=== PATIENT | female | born 2000 | race Caucasian/White ===

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

== ENCOUNTER 2020-08-09 13:55 | Emergency (ER) | payer MEDICAID ==
[~2020-08-09] VITALS: Ht 154.9 cm; Wt 74.8 kg
[2020-08-09 13:57] VITALS: BP 138/70
== END 2020-08-09 18:45 | disposition home or self-care (01) ==
LOC: ER 13:55
DX: O26.891 Other specified pregnancy related conditions, first trimester (principal); J06.9 Acute upper respiratory infection, unspecified; Z3A.01 Less than 8 weeks gestation of pregnancy; Z20.828 Contact with and (suspected) exposure to other viral communicable diseases
CPT/HCPCS: 36415; 87426; 99283; C9803; U0003

== ENCOUNTER 2024-09-05 17:08 | Inpatient (IN) | payer MEDICAID ==
[~2024-09-05] VITALS: Ht 154.9 cm; Wt 81.6 kg
[2024-09-05] MEDS ORDERED: ceFAZolin 2 GM/D5W50ml 50 ML IV ONE (17:45)
[2024-09-05] MEDS ORDERED: oxyTOCIN 10 UNIT/ML 10ML VIAL ONE (17:56)
[2024-09-05] MEDS ORDERED: MORPHINE SULF PF 5 MG/10 ML VIAL ONE (17:56)
[2024-09-05 18:04] LABS: Basophils # (auto) 0 10 ^3/uL (0-0.2); Basophils % (auto) 0.3 % (0.0-2.0); Eosinophils # (auto) 0 10 ^3/uL (0-0.8); Eosinophils % (auto) 0.1 % (0.0-7.0); Hematocrit 39.1 % (36.0-46.0); Hemoglobin 12.9 g/dL (12.2-16.2); Lymphocytes # (auto) 0.9 10 ^3/uL (0.4-5.4); Lymphocytes % (auto) 13.9 % (10.0-50.0); Mean Corpuscular Hgb Conc. 33.1 g/dL (32.0-36.0); Mean Corpuscular Volume 84.6 fL (80.0-100.0); Monocytes # (auto) 0.5 10 ^3/uL (0-1.3); Neutrophils # (auto) 5.3 10 ^3/uL (1.6-8.6); Neutrophils % (auto) 78.7 % (37.0-80.0); Nucleated Red Blood Cells % 0.1 %; Platelet Count (auto) 168 10^3/uL (140-450); Red Blood Cells 4.62 10^6/uL (4.0-5.20); Red Cell Distribution Width 16.1 % (11.8-14.3); White Blood Cell 6.7 10^3/uL (4.4-10.8)
--- NOTE | 2024-09-05 18:06 | DVHHP2 ---
OB CC & HPI Date Date of Admission: Sep 05, 2024 Patient Identification: : 5 Para: 3 EDC: Sep 19, 2024 EGA: 38WKS Chief Complaints: Reason for admission: active labor Admission Nurse Assessment Rev: No History of Present Complaints PT PRESNTS INactive labor,no rom or vag bleeding ,baby is breech Past Medical History Cardiac: No pertinent Hx Pulmonary: No pertinent Hx Central Nervous System: No pertinent Hx GI: No pertinent Hx Hemotology/Oncology: No pertinent Hx Hepatobiliary: No pertinent Hx Psychiatric: No pertinent Hx Musculoskeletal: No pertinent Hx Rheumotologic: No pertinent Hx Infectious Disease: No peritnent Hx ENT: No pertinent Hx Renal/: No pertinent Hx Endocrine: No pertinent Hx Dermatology: No pertinent Hx Past Surgical History: No pertinent Hx OB History OB History Care: Good Care Ultrasounds: Normal mid trimester US Obstetrical Complications: None Medical Complications: None Allergies: Coded Allergies: Avocado (Verified Allergy, Unknown, 10/04/16) Uncoded Allergies: PENECILLIN (Allergy, Unknown, 08/24/16) Current Medications Current Medications Medications (Trade) Dose Ordered Sig/Ruddy Route PRN Reason Start Time Stop Time Status Last Admin Lactated Ringer's 1,000 ml @ 125 mls/hr Q8H IV 09/05/24 17:45 Family & Social History Family/Social History Blood Type: O+ Rubella: immune RPR/VDRL: Negative GBS Status: Negative HBsAG: Negative Review of Systems Constitutional: No symptom reported Ears, Nose, & Throat: No symptom reported Eyes: No symptom reported Pulmonary/Respiratory: No symptom reported Cardiovascular: No symptom reported Gastrointestinal: No symptom reported Genitourinary: No symptom reported Musculoskeletal: No symptom reported Skin: No symptom reported Psychiatric: No symptom reported Endocrine: No symptom reported Hemotologic/Lymphatic: No symptom reported OB Admission Exam Physical Exam HEENT: TMs Normal, Fontanelles Normal, Nasal Mucosa Normal, Eyes non-injected, Oropharynx Normal, PERRLA, Moist Membranes, EOMI Heart: Rhythm Normal Lungs: Clear Abdomen: Non tender Extremities: Normal Reflexes: Normal Cervical Dilatation: 3cm Effacement: 50% Station: -3 Membranes: Intact Heart Rate: 130's Accelerations: Accelerations Present Decelerations: No Decelerations Short Term Variability: 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
[2024-09-05] MEDS ORDERED: DOCU-94 PO (18:07)
[2024-09-05] MEDS ORDERED: IBUP-1456 PO (18:07)
[2024-09-05] MEDS ORDERED: HYDR-4072 PO (18:07)
[2024-09-05] MEDS: CLINDAMYCIN 900MG IV 50 ML IV ONE (18:11)
[2024-09-05] MEDS: LACTATED RINGER'S 1,000 ML IV SCH (18:12)
--- NOTE | 2024-09-05 18:12 | DVH ---
Limited OBSTETRIC ULTRASOUND PRIOR TO 14 WEEKS CLINICAL INDICATION: Labor check TECHNIQUE: Multiple grayscale ultrasound images were obtained of the pelvis via transabdominal and tr ansvaginal approach for obstetric evaluation. Limited color Doppler and spectral Doppler acquisitions were also obtained. COMPARISON: None FINDINGS/IMPRESSION: 1. Placenta location, fundal. No placenta previa or abruption. 2. heart rate: 147 beats per minute 3. Current PERRY: 17.7 cm 4. position: Breech
[2024-09-05 18:22] LABS: Alanine Aminotransferase 15 U/L (7-40); Albumin 4.3 g/dL (3.2-4.8); Anion Gap 12 (5-15); Aspartate Aminotransferase 15 U/L (13-40); Calcium 9.2 mg/dL (8.7-10.4); Sodium 136 mmol/L (136-145)
[2024-09-05 18:23] LABS: Total Protein 6.8 g/dL (5.7-8.2)
[2024-09-05 18:27] LABS: INR 0.96 (0.9-1.15); Partial Thromboplastin Time 29.3 SEC (24.5-34.5); Prothrombin Time 10.2 sec (9.3-11.8)
[2024-09-05] MEDS ORDERED: PHENYLEPHRINE HCL 10 MG/ML VL ONE (18:28)
[2024-09-05] MEDS: LACT. RINGERS/OXYTOCIN 20UNITS 1,000 ML IV ONE (18:30)
[2024-09-05] MEDS ORDERED: ONDANSETRON HCL 4 MG/2 ML VIAL ONE (18:30)
[2024-09-05] MEDS: GUM (CHEWING) 1 GUM CHEW CHEW ONE (18:30)
[2024-09-05] MEDS ORDERED: ONDANSETRON HCL 4 MG/2 ML VIAL IV PRN ×2 (18:30→19:45)
[2024-09-05 18:32] LABS: Urine Bacteria FEW /hpf (None Seen); Urine Blood 1+ /uL (Negative); Urine Budding Yeast OCCASIONAL /hpf (None Seen); Urine Clarity Clear (Clear); Urine Color Light-Yellow (Yellow); Urine Mucus FEW (None Seen); Urine Protein, UAD Negative (Negative); Urine Specific Gravity 1.013 (1.001-1.035); Urine Squamous Epithelial Cell FEW /hpf (<5); Urine Urobilinogen Normal (Negative); Urine WBC 3 /HPF (0-5)
[2024-09-05 18:33] LABS: Amphetamine Screen, Urine Neg (NEGATIVE); Barbiturate Scree,Urine Neg (NEGATIVE); Benzodiazephine Screen, Urine Neg (NEGATIVE); Cannabinoid Screen, Urine Neg (NEGATIVE); Cocaine Screen, Urine Neg (NEGATIVE); Opiate Scree,Urine Neg (NEGATIVE); Phencyclidine Screen, Urine Neg (NEGATIVE)
[2024-09-05 18:33] LABS: Alkaline Phosphatase 166 U/L (46-116); BUN/Creatinine Ratio 9.3 (10.0-20.0); Bilirubin, Total 1.5 mg/dL (0.2-1.0); Blood Urea Nitrogen < 5 mg/dL (9-23); Carbon Dioxide 16 mmol/L (20-31); Chloride 108 mmol/L (98-107); Glucose 69 mg/dL (74-106); Potassium 3.2 mmol/L (3.5-5.1)
[2024-09-05] MEDS ORDERED: ePHEDrine SULFATE 50 MG/ML AMP ONE (18:38)
--- NOTE | 2024-09-05 18:57 | DVHOP2 ---
Operative Report DATE OF OPERATION: 09/05/24 PREOPERATIVE DIAGNOSES: iup at 38wks in labor,breech presentation ,desires pcs POSTOPERATIVE DIAGNOSES: same SURGEON: Archana Fitzgerald D.O./kelli ANESTHESIOLOGIST: mahamed TYPE OF ANESTHESIA : spinal CONSENT: The patient was informed of the risks and benefits of the procedure. The patient was informed of the risks and benefits of the procedure. These include but are not limited to , complications of anesthesia, postoperative infection, incomplete relief of symptoms, recurrence of symptoms, damage to blood vessels, nerves and tendons, deep venous thrombosis, pulmonary embolism and possible need for repeat surgery in the future. FINDINGS: Baby [b] with Apgars of [8] and [9]. Grossly normal appearing tubes and ovaries.breech PROCEDURES: Primary low transverse section. PROCEDURE IN DETAIL: The patient was taken to the operating room. She already had an epidural in place. She was then placed in supine position with a leftward tilt. A Pfannenstiel skin incision was made 2 cm above the symphysis pubis. This incision was carried to the underlying layer of fascia. The fascia was nicked in the midline. The incision was extended laterally. The superior aspect of the fascial incision was grasped and elevated. The same procedure was done to the inferior aspect of the fascial incision. The rectus muscles were then in the midline. Peritoneum was identified and entered. Peritoneal incision was extended superiorly and inferiorly with good visualization of the bladder. Bladder blade was inserted. Vesicouterine peritoneum was identified and entered. Lower uterine segment was incised in a transverse fashion. The was delivered from breech presentation. Infant was baby [b] with Apgars [8] and 9. Placenta was then removed manually. Uterus was exteriorized and cleared of all clots and debris. The incision was repaired using 0 Vicryl in a double-layered fashion. No bleeding was noted. Uterus was then returned to the abdomen. The gutters were cleared off all clots and debris. Peritoneum was closed using 0 Vicryl, fascia was closed using 0 Maxon, and skin was closed using feliciano. The patient tolerated the procedure well. She was taken to the recovery room in stable condition. ESTIMATED BLOOD LOSS: Estimated blood loss was noted to be 500 mL. ARCHANA FITZGERALD DO Sep 05, 2024 18:57
--- NOTE | 2024-09-05 18:59 | POSTOP ---
Post-Operative Note Post-Operative Note Preop Diagnosis iup at 38wks in breech presentation and active labor Postop Diagnosis: same Operation performed pltcs Specimen bbay boy,breech Anesthesia: Regional Anesthesiologist: nugyen Blood Loss(fluid mgmt) 500ml Surgeon Aidee Fitzgerald Manager Talent Management kelli Implant na Complications & Mgmt none Date 09/05/24 Time 18:57 AIDEE FITZGERALD DO Sep 05, 2024 18:59
[2024-09-05 19:23] VITALS: O2SAT 100
[2024-09-05] MEDS ORDERED: ACETAMINOPHEN IV 1000 MG/100ML (10MG/ML) IV PRN (19:45)
[2024-09-05] MEDS ORDERED: DexAMETHasone SOD PHOS 10MG/1ML VIAL INJ IV PRN (19:45)
[2024-09-05] MEDS ORDERED: MEPERIDINE HCL (25 MG/ML) 1ML VIAL IV PRN (19:45)
[2024-09-05] MEDS ORDERED: NALOXONE HCL 0.4 MG/ML VIAL IV PRN (19:45)
[2024-09-05] MEDS ORDERED: HYDROmorphone HCL 2 MG/ML VL/or syr IV PRN ×2 (19:45)
[2024-09-05] MEDS: NALBUPHINE HCL 10 MG/1ml INJECTION SUBCUT ONE (19:45)
[2024-09-05] MEDS ORDERED: KETOROLAC TROMETH 30 MG/ML 1ML VIAL IV PRN (19:45)
[2024-09-05 20:04] VITALS: BP_SYST 112; BP_SYST 131; BP_DIAS 54; BP_DIAS 68; PULSE 119; PULSE 127; RESP 17; RESP 18; TEMP 97.5; TEMP 97.9; O2SAT 97; O2SAT 98
[2024-09-05 20:34] VITALS: BP 131/54; PULSE 118; PULSE 122; RESP 16; O2SAT 100
[2024-09-05] MEDS: diphenhdrAMINE HCL 50 MG/1 ML VL IV PRN (20:58)
[2024-09-05 21:30] VITALS: BP 126/76; PULSE 119; PULSE 122; RESP 16; TEMP 98; O2SAT 97
[2024-09-05] MEDS: LACTATED RINGER'S 1,000 ML IV ONE (22:23)
[2024-09-05 22:30] VITALS: BP 112/59; PULSE 120; PULSE 134; RESP 16; O2SAT 94; O2SAT 97
[2024-09-05 23:30] VITALS: BP 110/60; PULSE 127; PULSE 128; RESP 16; TEMP 98; O2SAT 95; O2SAT 97
[2024-09-05 23:30] LABS: Basophils # (auto) 0 10 ^3/uL (0-0.2); Basophils % (auto) 0.2 % (0.0-2.0); Eosinophils # (auto) 0 10 ^3/uL (0-0.8); Hematocrit 33.9 % (36.0-46.0); Hemoglobin 11.6 g/dL (12.2-16.2); Lymphocytes # (auto) 0.9 10 ^3/uL (0.4-5.4); Lymphocytes % (auto) 14.4 % (10.0-50.0); Mean Corpuscular Hemoglobin 28.8 pg (28.0-32.0); Mean Corpuscular Hgb Conc. 34.2 g/dL (32.0-36.0); Mean Corpuscular Volume 84.1 fL (80.0-100.0); Monocytes # (auto) 0.5 10 ^3/uL (0-1.3); Monocytes % (auto) 7.1 % (0.0-12.0); Neutrophils # (auto) 5.1 10 ^3/uL (1.6-8.6); Neutrophils % (auto) 78.3 % (37.0-80.0); Platelet Count (auto) 163 10^3/uL (140-450); Red Blood Cells 4.03 10^6/uL (4.0-5.20); White Blood Cell 6.5 10^3/uL (4.4-10.8)
[2024-09-06] VITALS (18 sets, daily range): BP systolic 104–121; BP diastolic 41–76; PULSE 91–128; RESP 15–18; TEMP 97.9–98.4; O2SAT 94–100
[2024-09-06 06:18] LABS: Basophils # (auto) 0 10 ^3/uL (0-0.2); Basophils % (auto) 0.1 % (0.0-2.0); Eosinophils # (auto) 0 10 ^3/uL (0-0.8); Eosinophils % (auto) 0.1 % (0.0-7.0); Hemoglobin 10.8 g/dL (12.2-16.2); Lymphocytes # (auto) 1.3 10 ^3/uL (0.4-5.4); Lymphocytes % (auto) 22.9 % (10.0-50.0); Mean Corpuscular Hemoglobin 28.5 pg (28.0-32.0); Mean Corpuscular Hgb Conc. 33.9 g/dL (32.0-36.0); Mean Corpuscular Volume 84.1 fL (80.0-100.0); Monocytes # (auto) 0.6 10 ^3/uL (0-1.3); Monocytes % (auto) 10.3 % (0.0-12.0); Neutrophils # (auto) 3.7 10 ^3/uL (1.6-8.6); Neutrophils % (auto) 66.6 % (37.0-80.0); Nucleated Red Blood Cells % 0.1 %; Platelet Count (auto) 141 10^3/uL (140-450); Red Blood Cells 3.81 10^6/uL (4.0-5.20); Red Cell Distribution Width 15.9 % (11.8-14.3); White Blood Cell 5.6 10^3/uL (4.4-10.8)
--- NOTE | 2024-09-06 07:20 | DVHPN2 ---
Chief Complaints Patient reports: No new complaints Nursing reports: No new complaints Objective Vitals Vital Signs Date Time Temp Pulse Resp B/P (MAP) Pulse Ox O2 Delivery O2 Flow Rate FiO2 09/06/24 06:00 100 16 121/66 (84) 94 09/06/24 05:00 98.0 98.0 09/05/24 19:45 Room Air 09/05/24 19:23 0 Medications Current Medications Medications (Trade) Dose Ordered Sig/Ruddy Route PRN Reason Start Time Stop Time Status Last Admin Acetaminophen (Ofirmev) 1,000 mg Q8HPRN PRN IV MODERATE PAIN (4-6 PAIN SCALE) 09/06/24 00:15 09/07/24 00:14 Diphenhydramine HCl (Benadryl Injection) 25 mg Q4HP PRN IV FOR ITCHING 09/05/24 19:45 09/05/24 20:58 Ketorolac Tromethamine (Toradol Injection) 30 mg Q6HP PRN IV MODERATE PAIN (4-6 PAIN SCALE) 09/05/24 19:45 09/10/24 19:44 Lactated Ringer's 1,000 ml @ 125 mls/hr Q8H IV 09/05/24 17:45 09/06/24 05:35 Ondansetron HCl (Zofran) 4 mg Q4HP PRN IV NAUSEA / VOMITING 09/05/24 18:30 Ondansetron HCl (Zofran) 4 mg Q4HP PRN IV NAUSEA / VOMITING 09/05/24 19:45 General: Normal Lungs: Normal Cardiovascular: Normal Abdominal: Soft Extremities: Normal Studies Laboratory Tests 09/06/24 04:40 09/05/24 17:46 Test 09/05/24 17:46 Range/Units Serum Glucose 69 L 74-106 mg/dL Ass/Plan Assessment s/p pcs Plan supportive care AIDEE ELMORE DO Sep 06, 2024 07:20
[2024-09-06] MEDS ORDERED: TETANUS-DIPTH-ACEL PERTUSSIS 0.5ML SYR Tdap IM ONE (08:00)
[2024-09-06] MEDS ORDERED: HYDROcodone-ACET 5/325MG TAB PO PRN (08:30)
[2024-09-06] MEDS: ACETAMINOPHEN IV 1000 MG/100ML (10MG/ML) IV PRN (08:30)
[2024-09-06] MEDS: DOCUSATE CALCIUM 240 MG CAP PO SCH (13:46)
[2024-09-06] MEDS: SIMETHICONE 80 MG CHEWABLE TABLET PO SCH (13:46)
[2024-09-06] MEDS: DOCUSATE SOD 100 MG CAP PO SCH (13:46)
[2024-09-06] MEDS: IBUPROFEN 800 MG TAB PO PRN (16:10)
[2024-09-07 02:57] VITALS: RESP 18
[2024-09-07 03:34] VITALS: BP 129/80; PULSE 99; RESP 18; TEMP 98.5; O2SAT 100
--- NOTE | 2024-09-07 05:19 | DVHPN2 ---
Progress Note Date Seen: Sep 07, 2024 Subjective POD#2 s/p C/S for Breech Lochia mild. Pain controlled. No acute complaints. vital signs Vital Sign Date Time Temp Pulse Resp B/P (MAP) Pulse Ox O2 Delivery O2 Flow Rate FiO2 09/07/24 03:34 98.5 99 18 129/80 (96) 100 98.5 09/06/24 19:00 Room Air 09/05/24 19:23 0 Total Intake and Output 09/06/24 09/06/24 09/07/24 15:00 23:00 07:00 Output Total 450 ml 1000 ml Balance -450 ml -1000 ml medications Current Medications Medications Dose Ordered Sig/Ruddy Route Start Time Stop Time Status Last Admin Dose Admin Lactated Ringer's 1,000 ml @ 125 mls/hr Q8H IV 09/05/24 17:45 09/06/24 05:35 125 MLS/HR Ondansetron HCl 4 mg Q4HP PRN IV 09/05/24 18:30 Diphenhydramine HCl 25 mg Q4HP PRN IV 09/05/24 19:45 09/05/24 20:58 25 MG Ondansetron HCl 4 mg Q4HP PRN IV 09/05/24 19:45 Ketorolac Tromethamine 30 mg Q6HP PRN IV 09/05/24 19:45 09/10/24 19:44 Docusate Calcium 240 mg DAILY PO 09/06/24 10:00 09/06/24 13:46 240 MG Docusate Sodium 100 mg Q12HR PO 09/06/24 10:00 09/06/24 21:49 100 MG Dimethicone 80 mg QID PO 09/06/24 12:00 09/06/24 21:49 80 MG Ibuprofen 800 mg Q8HP PRN PO 09/06/24 08:30 09/07/24 03:30 800 MG Acetaminophen/ Hydrocodone Bitart 1 tab Q4HPRN PRN PO 09/06/24 08:30 Acetaminophen/ Hydrocodone Bitart 2 tab Q4HPRN PRN PO 09/06/24 08:30 laboratory and microbiology Laboratory Tests 09/06/24 04:40 09/05/24 17:46 Test 09/05/24 17:46 Range/Units Serum Glucose 69 L 74-106 mg/dL Objective O: AFVSS Chest: heart and lung sounds normal. Abd soft, non-tender, fundus firm, BS, no rebound or guarding, Incision - dressing and incision clean, dry, intact Ext Neg Homans, Non-tender, edema Lochia - minimal Labs Reviewed Problems(with codes): (1) Precipitous drop in hematocrit (2) Hematocrit precipitous drop Assessment/Plan POD#2 s/p 1' C/S for Breech, stable Continue supportive care D/C planning Plan discussed with: Patient PAVAN PALM DO Sep 07, 2024 05:19
[2024-09-07 06:06] LABS: RPR Non Reactive (Non Reactive)
[2024-09-07 07:00] VITALS: BP 121/74; PULSE 81; RESP 16; TEMP 98; O2SAT 97
--- NOTE | 2024-09-07 07:55 | DVHDS2 ---
Physician Discharge Progress N Final Diagnosis: Breech s/p C/Section Operations or Procedures: Operations or Procedures Primary low transv c/section Commentary: Commentary Uncomplicated PP course Condition on Discharge: Stable Disposition: Home Discharge Instructions: Diet: Regular Activity: Light activity Follow Up/Referral: [address] Fitzgerald Medications: [place]/Ibuprofen Follow Up Care: Discharge Statement: "Patient was advised to return to the ER or call 911 if any headaches, dizziness, shortness of breath, chest pain, abdominal pain, bleeding, fevers, or worsening of medical condition. Patient was counseled about treatment plan, medications, possible side effects, patientverbalized understanding. All questions were answered to the best of my ability. This discharge took greater then 30 minutes in planning, reviewing documentation, counseling the patient, and discussing with other team members." PAVAN PALM DO Sep 07, 2024 07:55
[2024-09-07] MEDS: HYDROcodone-ACET 5/325MG TAB PO PRN (10:20)
[2024-09-07 11:00] VITALS: BP 126/75; PULSE 79; RESP 18; TEMP 97.7; O2SAT 98
[2024-09-09 11:06] LABS: Treponema Pallidum Ab LC Non Reactive (Non Reactive)
== END 2024-09-07 13:10 | disposition home or self-care (01) | DRG 540 ==
LOC: LDRP 17:08 → UNDOADMIN 17:08 → LDRP 17:30
PROVIDERS: ADMIT Obstetrics & Gynecology; ATTEND Obstetrics & Gynecology
PROC: 10D00Z1 Extraction of Products of Conception, Low, Open Approach (ICD-10-PCS; principal; 2024-09-05 18:18)
DX: O32.1XX0 Maternal care for breech presentation, not applicable or unspecified (principal); R71.0 Precipitous drop in hematocrit; Z37.0 Single live birth; Z3A.38 38 weeks gestation of pregnancy
CPT/HCPCS: 36415; 76815; 80053; 80307; 81001; 85025; 85610; 85730; 86592; 86780; 86850; 86900; 86901; 94760; 94762; 96365; 96366; 96374; G0378; J0131; J2405; J2590; J3490